=== PATIENT | female | born 1955 | race Caucasian/White ===

== ENCOUNTER → 2024-03-01 12:50 | Outpatient (REF) | payer OTHER, SELFPAY | LOC: WDC 12:50 | PROVIDERS: ATTENDING PHYSICIAN Obstetrics & Gynecology; FAMILY PHYSICIAN Internal Medicine | DX: Z12.39 Encounter for other screening for malignant neoplasm of breast (principal) | CPT/HCPCS: 76641 ==

== ENCOUNTER → 2024-03-07 13:40 | Outpatient (REF) | payer OTHER, SELFPAY | LOC: MRI 3T 13:40 | PROVIDERS: ATTENDING PHYSICIAN Orthopaedic Surgery; FAMILY PHYSICIAN Internal Medicine | DX: M25.569 Pain in unspecified knee (principal) | CPT/HCPCS: 73721 ==

== ENCOUNTER → 2025-03-14 15:05 | Outpatient (REF) | payer OTHER, SELFPAY | LOC: MRI 3T 15:05 | PROVIDERS: ATTENDING PHYSICIAN Orthopaedic Surgery; FAMILY PHYSICIAN Internal Medicine | DX: M77.31 Calcaneal spur, right foot (principal); M76.61 Achilles tendinitis, right leg | CPT/HCPCS: 73721 ==